=== PATIENT | male | born 1960 | race Caucasian/White ===

== ENCOUNTER 2020-03-11 14:09 | Outpatient (CLI) | payer OTHER ==
--- NOTE | 2020-03-11 14:43 | RAD ---
Lumbar spine 3 views: 03/11/2020 COMPARISON: None HISTORY: Lumbar pain FINDINGS: Lumbar vertebral body height and alignment appears within normal limits. Multilevel lower l umbar spine facet hypertrophy. There is disc space narrowing with degenerative endplate change and anterior osteophyte formation at the L5-S1 level. Mild disc space narrowing and anterior osteophyte f ormation at L3-4 There is atherosclerotic calcification of the abdominal aorta. Vacuum disc formation noted at the lum bosacral junction. IMPRESSION: Multilevel lower lumbar spine degenerative change. No acute fracture.
== END 2020-03-11 14:10 | disposition home or self-care (01) ==
LOC: MADRAD 14:09
PROVIDERS: ATTEND Physician Assistant
DX: M54.5 Low back pain (principal); M47.816 Spondylosis without myelopathy or radiculopathy, lumbar region
CPT/HCPCS: 72100